=== PATIENT | female | born 2000 | race African-American/Black ===

== ENCOUNTER 2021-05-03 17:24 | Inpatient (IN) ==
[2021-05-03] MEDS ORDERED: SODIUM CHLORIDE 0.9% 1,000 ML IV STA (19:30)
[2021-05-03 19:39] LABS: Basophils % 0.3 % (0.0-0.8); Eosinophils # 0.1 10*3/uL (0.0-0.87); Eosinophils % 0.9 % (0.00-10.9); Hematocrit 38.7 VOL% (35.7-47.0); Hemoglobin 12.1 GM/DL (12.0-16.0); Immature Granulocytes % 5.5 %; Lymphocytes # 1.3 10*3/uL (1.4-4.0); Lymphocytes % 10.4 % (21.3-54.2); Mean Corpuscular HGB Conc 31.3 GM/DL (32-36); Mean Corpuscular Volume 94.9 FL (87-102); Mean Platelet Volume 10.7 FL (9.6-12.0); Monocytes % 11.4 % (1.7-12.7); Neutrophils % 71.5 % (38.7-73.9); Platelet Count 441 T/CUMM (130-400); Red Blood Count 4.08 MC/CUMM (3.8-5.5); Red Cell Distribution Width 12.5 % (9.3-17.3); White Blood Count 12.8 T/CUMM (4-12)
[2021-05-03 19:45] LABS: Glucose,Urine (UA) >=1000 mg/dL (Negative); Ketones,Urine 80 mg/dL (Negative); Nitrite,Urine Negative (Negative); Protein,Urine Negative (Negative); RBC,Urine 2 /HPF (0-4); Squamous Epithelial Cell,Urine Occasional /HPF (0-10); Urine Appearance Clear (Clear); Urine Color Yellow (Yellow); Urine pH 6.5 (4.5-8.0)
[2021-05-03 19:46] LABS: Bilirubin,Urine Negative (Negative); Blood, Urine Trace mg/dL (Negative); Urine Urobilinogen 0.2 eU/dL (<2.0)
[2021-05-03 19:59] LABS: Eosinophils 1 % (0-10); Hypochromia 1+; Lymphocytes 15 % (20-55); Segmented Neutrophils 73 % (50-85); Total Cells Counted 100
[2021-05-03 20:00] LABS: Albumin 2.5 G/DL (3.4-5.0); Bilirubin,Total 0.4 MG/DL (0.20-1.00); Calcium 9.5 MG/DL (8.5-10.1); Osmolality,Calculated 273.2 MOS/KG (273-304); Platelet Estimate Adequate; Polychromasia Few; Potassium 4.3 MMOL/L (3.5-5.1); Total Protein 7.8 G/DL (6.4-8.2)
[2021-05-03] MEDS ORDERED: INSULIN REGULAR 100 UNIT/ML IV STA (20:22)
[2021-05-03] MEDS ORDERED: VANCOMYCIN INJ 1,000 MG in SODIUM CHLORIDE 0.9% 250 ML IV STA ×2 (20:24→20:35)
[2021-05-03] MEDS ORDERED: ONDANSETRON 4 MG/2 ML VIAL IV STA (20:24)
[2021-05-03] MEDS ORDERED: MORPHINE 4 MG/1 ML VIAL IV STA (20:34)
[2021-05-03] MEDS ORDERED: MORPHINE 2 MG/1 ML SYRINGE ONE (20:45)
[2021-05-03] MEDS ORDERED: GLUCAGON 1 MG VIAL IM PRN (22:07)
[2021-05-03] MEDS ORDERED: DEXTROSE 10% 250 ML BAG IV PRN (22:07)
[2021-05-03 22:10] LABS: ABG Base Excess 0.4 MMOL/L (-2.5-2.5); ABG HCO3 24.2 MMOL/L (20-26); ABG Oxygen Saturation 97.2 % (95-100); ABG PCO2 36.3 MM HG (35-48); ABG PH 7.441 (7.35-7.45); ABG PO2 91.4 MM HG (80-95); ABG TCO2 25.3 MMOL/L (23-27)
[2021-05-04] MEDS: SODIUM CHLORIDE 0.9% 1,000 ML IV SCH ×3 (01:14→21:02)
[2021-05-04] MEDS: MORPHINE 4 MG/1 ML VIAL IV PRN ×2 (01:21→05:27)
[2021-05-04 01:38] LABS: Calcium 8.5 MG/DL (8.5-10.1); Osmolality,Calculated 278.8 MOS/KG (273-304); Potassium 4.5 MMOL/L (3.5-5.1)
[2021-05-04] MEDS: INSULIN LISPRO 100 UNIT/ML SUBCUT SCH ×5 (03:03→18:48)
[2021-05-04 04:29] LABS: ABG Base Excess -0.2 MMOL/L (-2.5-2.5); ABG HCO3 23.7 MMOL/L (20-26); ABG Oxygen Saturation 69.2 % (95-100); ABG PCO2 39.9 MM HG (35-48); ABG PH 7.396 (7.35-7.45); ABG TCO2 22.1 MMOL/L (23-27)
[2021-05-04 04:36] LABS: ABG PO2 39.1 MM HG (80-95)
[2021-05-04 05:10] LABS: Arterial Base Excess iSTAT -1 MMOL/L (-2.5-2.5); Arterial Bicarbonate iSTAT 23.4 MMOL/L (20-26); Arterial O2 Saturation iSTAT 96 % (95-100); Arterial PCO2 iSTAT 37 MM HG (35-48); Arterial PO2 iSTAT 80 MM HG (80-95); Arterial Total CO2 iSTAT 24 MMO/L (23-27); Arterial pH iSTAT 7.412 (7.35-7.45)
[2021-05-04] MEDS: ONDANSETRON 4 MG/2 ML VIAL IV PRN (05:27)
[2021-05-04 06:55] LABS: Basophils # 0.1 10*3/uL (0.0-0.2); Basophils % 0.5 % (0.0-0.8); Eosinophils # 0.2 10*3/uL (0.0-0.87); Eosinophils % 1.8 % (0.00-10.9); Hematocrit 33.1 VOL% (35.7-47.0); Hemoglobin 10.4 GM/DL (12.0-16.0); Immature Granulocytes Absolute 0.83 #; Lymphocytes # 2.3 10*3/uL (1.4-4.0); Lymphocytes % 19.6 % (21.3-54.2); Mean Corpuscular HGB Conc 31.4 GM/DL (32-36); Mean Corpuscular Volume 94.6 FL (87-102); Mean Platelet Volume 11.1 FL (9.6-12.0); Monocytes % 15.3 % (1.7-12.7); Neutrophils % 55.8 % (38.7-73.9); Platelet Count 390 T/CUMM (130-400); Red Cell Distribution Width 12.5 % (9.3-17.3); White Blood Count 11.9 T/CUMM (4-12)
[2021-05-04 07:17] LABS: Eosinophils 4 % (0-10); Hypochromia Slight; Lymphocytes 23 % (20-55); Microcytosis Slight; Platelet Estimate Adequate; Segmented Neutrophils 57 % (50-85); Total Cells Counted 100
[2021-05-04 07:21] LABS: Potassium 3.6 MMOL/L (3.5-5.1)
[2021-05-04] MEDS ORDERED: SUCCINYLCHOLINE 200 MG/10 ML VIAL ONE (07:55)
[2021-05-04] MEDS ORDERED: MIDAZOLAM 2 MG/2 ML VIAL ONE (07:55)
[2021-05-04] MEDS ORDERED: ROCURONIUM 50 MG/5 ML VIAL IV ONE (07:55)
[2021-05-04] MEDS ORDERED: fentaNYL 100 MCG/2 ML VIAL ONE (07:55)
[2021-05-04] MEDS ORDERED: SEVOFLURANE 1 UNIT/15 MINUTE INH ONE (07:55)
[2021-05-04] MEDS ORDERED: LIDOCAINE 2% 5 ML VIAL ONE (07:55)
[2021-05-04] MEDS ORDERED: propofoL 200 MG/20 ML VIAL IV ONE (07:55)
[2021-05-04] MEDS ORDERED: LIDOCAINE 1%/EPI INJ 20 ML VIAL ONE (08:00)
[2021-05-04] MEDS ORDERED: BUPIVACAINE MPF 0.25% 30 ML VIAL ONE (08:00)
[2021-05-04 08:59] LABS: Hepatitis B Core IgM Quant 0.17 Index; Hepatitis B Surface Ag Quant 0.11 Index; Hepatitis B Surface Ag Result Non-Reactive (NonReactive); Hepatitis C Virus Ab Quant 0.08 Index; Hepatitis C Virus Ab Result Non-Reactive (NonReactive)
[2021-05-04] MEDS ORDERED: VANCOMYCIN INJ 1,000 MG in SODIUM CHLORIDE 0.9% 250 ML IV SCH (09:00)
[2021-05-04] MEDS ORDERED: SUGAMMADEX 200 MG/2 ML VIAL IV ONE (09:05)
[2021-05-04] MEDS ORDERED: HYDROmorphone 1 MG/1 ML SYRINGE ONE (09:50)
[2021-05-04] MEDS ORDERED: HYDROmorphone 1 MG/1 ML SYRINGE IV PRN (09:52)
[2021-05-04] MEDS ORDERED: ONDANSETRON 4 MG/2 ML VIAL IV PRN (09:52)
[2021-05-04] MEDS: PANTOPRAZOLE 40 MG VIAL IV SCH (11:02)
[2021-05-04] MEDS: VANCOMYCIN INJ 1,000 MG in SODIUM CHLORIDE 0.9% 250 ML IV SCH ×2 (11:03→21:02)
[2021-05-04] MEDS ORDERED: GLUCAGON 1 MG VIAL IM PRN (11:04)
[2021-05-04] MEDS ORDERED: BISACODYL 5 MG TABLET PO PRN (11:04)
[2021-05-04] MEDS ORDERED: ACETAMINOPHEN 325 MG TABLET PO PRN (11:04)
[2021-05-04] MEDS ORDERED: DEXTROSE 10% 250 ML BAG IV PRN (11:43)
[2021-05-04 11:46] LABS: Calcium 8.3 MG/DL (8.5-10.1); Osmolality,Calculated 275.8 MOS/KG (273-304); Potassium 3.7 MMOL/L (3.5-5.1)
[2021-05-04 11:50] LABS: Albumin 1.9 G/DL (3.4-5.0); Bilirubin,Direct 0.12 MG/DL (0.0-0.20); Bilirubin,Indirect 0.5 MG/DL (0.0-1.0); Bilirubin,Total 0.6 MG/DL (0.20-1.00); Total Protein 6.1 G/DL (6.4-8.2)
[2021-05-04] MEDS: PIPERACILLIN/TAZOBACTAM 3,375 MG in SODIUM CHLORIDE 0.9% 100 ML IV SCH (13:26)
[2021-05-04] MEDS: HYDROmorphone 1 MG/1 ML SYRINGE IV PRN ×2 (13:30→17:15)
[2021-05-04] MEDS ORDERED: INSULIN GLARGINE 100 UNIT/ML SUBCUT SCH (21:00)
[2021-05-04] MEDS: KETOROLAC 15 MG/1 ML VIAL IV PRN (21:03)
[2021-05-05] MEDS: PIPERACILLIN/TAZOBACTAM 3,375 MG in SODIUM CHLORIDE 0.9% 100 ML IV SCH ×3 (00:09→17:30)
[2021-05-05] MEDS: INSULIN LISPRO 100 UNIT/ML SUBCUT SCH ×7 (00:09→20:29)
[2021-05-05] MEDS: HYDROmorphone 1 MG/1 ML SYRINGE IV PRN ×3 (04:16→22:29)
[2021-05-05] MEDS: ONDANSETRON 4 MG/2 ML VIAL IV PRN ×2 (04:16→22:29)
[2021-05-05 07:16] LABS: Basophils % 0.4 % (0.0-0.8); Eosinophils # 0.3 10*3/uL (0.0-0.87); Eosinophils % 2.4 % (0.00-10.9); Hematocrit 30.9 VOL% (35.7-47.0); Hemoglobin 9.6 GM/DL (12.0-16.0); Immature Granulocytes % 11.3 %; Immature Granulocytes Absolute 1.22 #; Lymphocytes % 18.7 % (21.3-54.2); Mean Corpuscular HGB Conc 31.1 GM/DL (32-36); Mean Corpuscular Volume 95.4 FL (87-102); Mean Platelet Volume 10.6 FL (9.6-12.0); Monocytes % 15.5 % (1.7-12.7); Neutrophils % 51.7 % (38.7-73.9); Platelet Count 400 T/CUMM (130-400); Red Blood Count 3.24 MC/CUMM (3.8-5.5); Red Cell Distribution Width 12.5 % (9.3-17.3); White Blood Count 10.8 T/CUMM (4-12)
[2021-05-05 07:42] LABS: Alanine Aminotransferase 110 U/L (13-56); Albumin 1.8 G/DL (3.4-5.0); Alkaline Phosphatase 210 U/L (45-117); Aspartate Amino Transferase 398 U/L (0-37); Bilirubin,Total < 0.39 MG/DL (0.20-1.00); Blood Urea Nitrogen 3 MG/DL (7-18); Calcium 8.5 MG/DL (8.5-10.1); Carbon Dioxide 27 MMOL/L (21-32); Estimated Glom Filtration Rate 140 ML/MIN; Glucose 182 MG/DL (74-106); Potassium 3.6 MMOL/L (3.5-5.1); Sodium 136 MMOL/L (136-145); Total Protein 5.9 G/DL (6.4-8.2)
[2021-05-05 08:11] LABS: Band Neutrophils 3 % (0-10); Eosinophils 3 % (0-10); Hypochromia Slight; Lymphocytes 18 % (20-55); Myelocytes 1 %; Promyelocytes 2 %; Segmented Neutrophils 59 % (50-85); Total Cells Counted 100
[2021-05-05 08:12] LABS: Microcytosis 1+
[2021-05-05] MEDS ORDERED: POTASSIUM CHLORIDE 20 MEQ TABLET PO ONE (09:00)
[2021-05-05] MEDS ORDERED: MAGNESIUM SULF RIDER 2 GM/50 ML PREMIX IV ONE (09:00)
[2021-05-05] MEDS: KETOROLAC 15 MG/1 ML VIAL IV PRN ×2 (09:06→20:30)
[2021-05-05] MEDS: PANTOPRAZOLE 40 MG VIAL IV SCH (09:10)
[2021-05-05] MEDS: VANCOMYCIN INJ 1,000 MG in SODIUM CHLORIDE 0.9% 250 ML IV SCH ×2 (09:55→20:31)
[2021-05-05] MEDS: SODIUM CHLORIDE 0.9% 1,000 ML IV SCH ×3 (13:30→22:28)
[2021-05-05] MEDS: INSULIN GLARGINE 100 UNIT/ML SUBCUT SCH (20:29)
[2021-05-06] MEDS: INSULIN LISPRO 100 UNIT/ML SUBCUT SCH ×7 (00:29→23:54)
[2021-05-06] MEDS: PIPERACILLIN/TAZOBACTAM 3,375 MG in SODIUM CHLORIDE 0.9% 100 ML IV SCH ×2 (00:29→09:23)
[2021-05-06] MEDS: VANCOMYCIN INJ 1,000 MG in SODIUM CHLORIDE 0.9% 250 ML IV SCH ×3 (04:19→21:11)
[2021-05-06 09:03] LABS: Alanine Aminotransferase 113 U/L (13-56); Albumin 1.9 G/DL (3.4-5.0); Alkaline Phosphatase 192 U/L (45-117); Aspartate Amino Transferase 323 U/L (0-37); Bilirubin,Total < 0.39 MG/DL (0.20-1.00); Blood Urea Nitrogen 3 MG/DL (7-18); Calcium 8.6 MG/DL (8.5-10.1); Carbon Dioxide 28 MMOL/L (21-32); Estimated Glom Filtration Rate 86 ML/MIN; Glucose 239 MG/DL (74-106); Osmolality,Calculated 285.3 MOS/KG (273-304); Potassium 3.8 MMOL/L (3.5-5.1); Sodium 141 MMOL/L (136-145); Total Protein 6.2 G/DL (6.4-8.2)
[2021-05-06] MEDS: PANTOPRAZOLE 40 MG VIAL IV SCH (09:23)
[2021-05-06] MEDS: SODIUM CHLORIDE 0.9% 1,000 ML IV SCH ×2 (10:55→15:30)
[2021-05-06] MEDS: HYDROmorphone 1 MG/1 ML SYRINGE IV PRN (14:49)
[2021-05-06] MEDS: INSULIN GLARGINE 100 UNIT/ML SUBCUT SCH (21:08)
[2021-05-06] MEDS: KETOROLAC 15 MG/1 ML VIAL IV PRN (21:13)
[2021-05-07] MEDS: VANCOMYCIN INJ 1,000 MG in SODIUM CHLORIDE 0.9% 250 ML IV SCH ×2 (04:07→12:15)
[2021-05-07] MEDS: SODIUM CHLORIDE 0.9% 1,000 ML IV SCH ×2 (04:08→15:16)
[2021-05-07] MEDS: INSULIN LISPRO 100 UNIT/ML SUBCUT SCH ×6 (04:08→23:36)
[2021-05-07 05:24] LABS: Basophils % 0.3 % (0.0-0.8); Eosinophils # 0.4 10*3/uL (0.0-0.87); Hematocrit 31.8 VOL% (35.7-47.0); Hemoglobin 9.9 GM/DL (12.0-16.0); Immature Granulocytes % 13.1 %; Immature Granulocytes Absolute 1.54 #; Lymphocytes # 2.4 10*3/uL (1.4-4.0); Lymphocytes % 20.3 % (21.3-54.2); Mean Corpuscular HGB Conc 31.1 GM/DL (32-36); Mean Corpuscular Volume 93.8 FL (87-102); Mean Platelet Volume 9.7 FL (9.6-12.0); Monocytes % 11.6 % (1.7-12.7); Neutrophils % 51.7 % (38.7-73.9); Platelet Count 426 T/CUMM (130-400); Red Blood Count 3.39 MC/CUMM (3.8-5.5); Red Cell Distribution Width 12.7 % (9.3-17.3); White Blood Count 11.8 T/CUMM (4-12)
[2021-05-07 05:48] LABS: Albumin 1.9 G/DL (3.4-5.0); Bilirubin,Total 0.4 MG/DL (0.20-1.00); Calcium 8.6 MG/DL (8.5-10.1); Osmolality,Calculated 287.6 MOS/KG (273-304); Potassium 3.4 MMOL/L (3.5-5.1)
[2021-05-07 05:53] LABS: Anisocytosis Slight; Band Neutrophils 7 % (0-10); Eosinophils 4 % (0-10); Lymphocytes 21 % (20-55); Myelocytes 3 %; Platelet Estimate Normal; Promyelocytes 2 %; Segmented Neutrophils 54 % (50-85); Total Cells Counted 100
[2021-05-07 05:54] LABS: Macrocytosis Slight; Smudge Cells Few
[2021-05-07] MEDS ORDERED: SEVOFLURANE 1 UNIT/15 MINUTE INH ONE (08:06)
[2021-05-07] MEDS ORDERED: propofoL 200 MG/20 ML VIAL IV ONE (08:06)
[2021-05-07] MEDS ORDERED: LIDOCAINE 2% 5 ML VIAL ONE (08:06)
[2021-05-07] MEDS ORDERED: ONDANSETRON 4 MG/2 ML VIAL ONE (08:06)
[2021-05-07] MEDS ORDERED: MIDAZOLAM 2 MG/2 ML VIAL ONE (08:06)
[2021-05-07] MEDS ORDERED: fentaNYL 100 MCG/2 ML VIAL ONE ×2 (08:07→09:07)
[2021-05-07] MEDS ORDERED: LIDOCAINE 1%/EPI INJ 20 ML VIAL ONE (08:22)
[2021-05-07] MEDS ORDERED: BUPIVACAINE MPF 0.25% 30 ML VIAL ONE (08:22)
[2021-05-07] MEDS ORDERED: LACTATED RINGERS 1,000 ML IV SCH (08:30)
[2021-05-07] MEDS ORDERED: ACETAMINOPHEN INJ 1,000 MG/100 ML VIAL IV ONE (09:07)
[2021-05-07] MEDS: SODIUM CHLORIDE 0.45% 1,000 ML IV SCH (12:15)
[2021-05-07] MEDS: PANTOPRAZOLE 40 MG VIAL IV SCH (12:16)
[2021-05-07] MEDS: POTASSIUM CHLORIDE 20 MEQ TABLET PO ONE ×2 (12:16→14:30)
[2021-05-07] MEDS ORDERED: POTASSIUM BICARB EFFERVESCENT 20 MEQ TAB.EFF PO ONE (14:28)
[2021-05-07] MEDS: HYDROmorphone 1 MG/1 ML SYRINGE IV PRN ×2 (18:05→22:24)
[2021-05-07] MEDS: INSULIN GLARGINE 100 UNIT/ML SUBCUT SCH (20:28)
[2021-05-08] MEDS: SODIUM CHLORIDE 0.45% 1,000 ML IV SCH ×4 (01:49→18:27)
[2021-05-08] MEDS: INSULIN LISPRO 100 UNIT/ML SUBCUT SCH ×6 (03:58→23:49)
[2021-05-08 05:57] LABS: Basophils % 0.2 % (0.0-0.8); Eosinophils # 0.3 10*3/uL (0.0-0.87); Eosinophils % 2.5 % (0.00-10.9); Hematocrit 32.9 VOL% (35.7-47.0); Immature Granulocytes % 7.5 %; Immature Granulocytes Absolute 0.98 #; Lymphocytes # 2.5 10*3/uL (1.4-4.0); Lymphocytes % 19.2 % (21.3-54.2); Mean Corpuscular HGB Conc 30.4 GM/DL (32-36); Mean Corpuscular Volume 96.5 FL (87-102); Mean Platelet Volume 9.9 FL (9.6-12.0); Monocytes % 12.1 % (1.7-12.7); Neutrophils % 58.5 % (38.7-73.9); Platelet Count 431 T/CUMM (130-400); Red Blood Count 3.41 MC/CUMM (3.8-5.5); Red Cell Distribution Width 13.1 % (9.3-17.3); White Blood Count 13.1 T/CUMM (4-12)
[2021-05-08 06:17] LABS: Alanine Aminotransferase 74 U/L (13-56); Alkaline Phosphatase 174 U/L (45-117); Aspartate Amino Transferase 93 U/L (0-37); Bilirubin,Total < 0.39 MG/DL (0.20-1.00); Blood Urea Nitrogen 6 MG/DL (7-18); Calcium 9.2 MG/DL (8.5-10.1); Carbon Dioxide 32 MMOL/L (21-32); Estimated Glom Filtration Rate 49 ML/MIN; Glucose 95 MG/DL (74-106); Potassium 3.7 MMOL/L (3.5-5.1); Sodium 143 MMOL/L (136-145); Total Protein 6.4 G/DL (6.4-8.2)
[2021-05-08 06:38] LABS: Eosinophils 2 % (0-10); Hypochromia 1+; Lymphocytes 20 % (20-55); Microcytosis 1+; Platelet Estimate Increased; Segmented Neutrophils 68 % (50-85); Total Cells Counted 100
[2021-05-08] MEDS: PANTOPRAZOLE 40 MG VIAL IV SCH (08:47)
[2021-05-08] MEDS: DOXYCYCLINE HYCLATE INJ 100 MG in SODIUM CHLORIDE 0.9% 100 ML IV SCH ×2 (13:31→23:49)
[2021-05-08] MEDS: SODIUM HYPOCHLORITE 0.25% IRRIG 473 ML BOTTLE TOP SCH ×2 (18:27→21:44)
[2021-05-08] MEDS: INSULIN GLARGINE 100 UNIT/ML SUBCUT SCH (21:10)
[2021-05-09] MEDS: INSULIN LISPRO 100 UNIT/ML SUBCUT SCH ×4 (04:16→15:51)
[2021-05-09 05:27] LABS: Basophils # 0.1 10*3/uL (0.0-0.2); Basophils % 0.9 % (0.0-0.8); Eosinophils # 0.2 10*3/uL (0.0-0.87); Eosinophils % 1.2 % (0.00-10.9); Hemoglobin 9.9 GM/DL (12.0-16.0); Immature Granulocytes % 6.9 %; Immature Granulocytes Absolute 1.08 #; Lymphocytes % 12.7 % (21.3-54.2); Mean Corpuscular HGB Conc 30.9 GM/DL (32-36); Mean Corpuscular Volume 96.4 FL (87-102); Mean Platelet Volume 10.2 FL (9.6-12.0); Monocytes % 10.2 % (1.7-12.7); Neutrophils % 68.1 % (38.7-73.9); Platelet Count 432 T/CUMM (130-400); Red Blood Count 3.32 MC/CUMM (3.8-5.5); Red Cell Distribution Width 13.1 % (9.3-17.3); White Blood Count 15.5 T/CUMM (4-12)
[2021-05-09 05:47] LABS: Alanine Aminotransferase 61 U/L (13-56); Albumin 2.1 G/DL (3.4-5.0); Alkaline Phosphatase 168 U/L (45-117); Aspartate Amino Transferase 71 U/L (0-37); Bilirubin,Total < 0.39 MG/DL (0.20-1.00); Blood Urea Nitrogen 6 MG/DL (7-18); Calcium 8.4 MG/DL (8.5-10.1); Carbon Dioxide 27 MMOL/L (21-32); Estimated Glom Filtration Rate 53 ML/MIN; Glucose 102 MG/DL (74-106); Osmolality,Calculated 276.4 MOS/KG (273-304); Potassium 4.2 MMOL/L (3.5-5.1); Sodium 140 MMOL/L (136-145); Total Protein 6.8 G/DL (6.4-8.2)
[2021-05-09 06:45] LABS: Band Neutrophils 2 % (0-10); Eosinophils 1 % (0-10); Lymphocytes 13 % (20-55); Nucleated Red Blood Cells 1 (0-5); Segmented Neutrophils 78 % (50-85); Total Cells Counted 100
[2021-05-09 06:46] LABS: Hypochromia 1+; Microcytosis 1+; Platelet Estimate Adequate
[2021-05-09] MEDS: SODIUM HYPOCHLORITE 0.25% IRRIG 473 ML BOTTLE TOP SCH (08:33)
[2021-05-09] MEDS: PANTOPRAZOLE 40 MG VIAL IV SCH (08:39)
[2021-05-09] MEDS: SODIUM CHLORIDE 0.45% 1,000 ML IV SCH ×2 (10:29→14:58)
[2021-05-09] MEDS: DOXYCYCLINE HYCLATE INJ 100 MG in SODIUM CHLORIDE 0.9% 100 ML IV SCH (12:59)
[2021-05-09 15:27] VITALS: BP 119/76
[2021-05-09] MEDS ORDERED: INSULIN GLARGINE 100 UNIT/ML SUBCUT SCH (21:00)
[2021-05-10] MEDS ORDERED: PANTOPRAZOLE 40 MG TABLET PO SCH (06:30)
== END 2021-05-09 16:08 | disposition home health service (06) | DRG 623 ==
LOC: N.ED 17:24 → N.EDINP 05-04 01:03 → N.5E 05-04 03:21
PROVIDERS: ADMIT Surgery; ATTEND Surgery

== ENCOUNTER 2021-10-27 13:57 | Inpatient (IN) ==
[2021-10-27] MEDS ORDERED: HYDROmorphone 1 MG/1 ML SYRINGE IV STA (14:28)
[2021-10-27] MEDS ORDERED: SODIUM CHLORIDE 0.9% 1,000 ML IV STA ×2 (14:28→17:11)
[2021-10-27] MEDS ORDERED: VANCOMYCIN INJ 1,250 MG in SODIUM CHLORIDE 0.9% 250 ML IV STA (14:29)
[2021-10-27] MEDS ORDERED: ONDANSETRON 4 MG/2 ML VIAL IV ONE (14:29)
[2021-10-27 15:14] LABS: Calcium 10.7 MG/DL (8.5-10.1); Osmolality,Calculated 272.8 MOS/KG (273-304)
[2021-10-27 16:26] LABS: Basophils # 0.1 10*3/uL (0.0-0.2); Basophils % 0.5 % (0.0-0.8); Eosinophils # 0.4 10*3/uL (0.0-0.87); Hematocrit 39.9 VOL% (35.7-47.0); Hemoglobin 12.8 GM/DL (12.0-16.0); Immature Granulocytes % 1.7 %; Immature Granulocytes Absolute 0.29 #; Lymphocytes # 2.1 10*3/uL (1.4-4.0); Mean Corpuscular HGB Conc 32.1 GM/DL (32-36); Mean Corpuscular Volume 92.1 FL (87-102); Mean Platelet Volume 11.6 FL (9.6-12.0); Monocytes # 1.7 10*3/uL (0.11-0.8); Monocytes % 9.8 % (1.7-12.7); Platelet Count 436 T/CUMM (130-400); Red Blood Count 4.33 MC/CUMM (3.8-5.5); White Blood Count 17.4 T/CUMM (4-12)
[2021-10-27] MEDS ORDERED: LIDOCAINE 1%/EPI INJ 20 ML VIAL ONE (16:43)
[2021-10-27] MEDS ORDERED: GLUCAGON 1 MG VIAL IM PRN (17:11)
[2021-10-27] MEDS ORDERED: DEXTROSE 10% 250 ML BAG IV PRN (17:11)
[2021-10-27] MEDS ORDERED: ONDANSETRON 4 MG/2 ML VIAL IV PRN (17:11)
[2021-10-27] MEDS ORDERED: ACETAMINOPHEN 325 MG TABLET PO PRN (17:11)
[2021-10-27] MEDS: MORPHINE 2 MG/1 ML SYRINGE IV PRN (17:34)
[2021-10-27] MEDS: ENOXAPARIN 40 MG/0.4 ML SYRINGE SUBCUT SCH (17:41)
[2021-10-27] MEDS: PIPERACILLIN/TAZOBACTAM 3,375 MG in SODIUM CHLORIDE 0.9% 100 ML IV SCH (18:16)
[2021-10-27] MEDS: INSULIN LISPRO 100 UNIT/ML SUBCUT SCH (20:34)
[2021-10-27] MEDS: DOCUSATE SODIUM 100 MG CAPSULE PO SCH (20:35)
[2021-10-27] MEDS: LACTATED RINGERS 1,000 ML IV SCH (20:37)
[2021-10-27] MEDS ORDERED: INSULIN GLARGINE 100 UNIT/ML SUBCUT SCH (21:00)
[2021-10-28] MEDS: PIPERACILLIN/TAZOBACTAM 3,375 MG in SODIUM CHLORIDE 0.9% 100 ML IV SCH ×3 (00:34→16:38)
[2021-10-28] MEDS: MORPHINE 2 MG/1 ML SYRINGE IV PRN ×3 (00:35→21:00)
[2021-10-28] MEDS: VANCOMYCIN INJ 1,000 MG in SODIUM CHLORIDE 0.9% 250 ML IV SCH ×2 (05:50→20:41)
[2021-10-28 05:55] LABS: Basophils # 0.1 10*3/uL (0.0-0.2); Basophils % 0.6 % (0.0-0.8); Eosinophils # 0.3 10*3/uL (0.0-0.87); Eosinophils % 2.3 % (0.00-10.9); Hematocrit 35.2 VOL% (35.7-47.0); Hemoglobin 11.1 GM/DL (12.0-16.0); Immature Granulocytes % 2.5 %; Immature Granulocytes Absolute 0.35 #; Lymphocytes # 2.3 10*3/uL (1.4-4.0); Lymphocytes % 16.5 % (21.3-54.2); Mean Corpuscular HGB Conc 31.5 GM/DL (32-36); Mean Corpuscular Volume 94.4 FL (87-102); Mean Platelet Volume 11.2 FL (9.6-12.0); Monocytes # 1.4 10*3/uL (0.11-0.8); Monocytes % 9.7 % (1.7-12.7); Neutrophils % 68.4 % (38.7-73.9); Platelet Count 355 T/CUMM (130-400); Red Blood Count 3.73 MC/CUMM (3.8-5.5); White Blood Count 14.1 T/CUMM (4-12)
[2021-10-28 06:55] LABS: Calcium 9.3 MG/DL (8.5-10.1); Osmolality,Calculated 277.8 MOS/KG (273-304); Potassium 4.3 MMOL/L (3.5-5.1)
[2021-10-28] MEDS: INSULIN LISPRO 100 UNIT/ML SUBCUT SCH ×4 (08:01→20:40)
[2021-10-28] MEDS: DOCUSATE SODIUM 100 MG CAPSULE PO SCH ×2 (08:01→20:40)
[2021-10-28] MEDS: LACTATED RINGERS 1,000 ML IV SCH ×3 (08:02→18:00)
[2021-10-28] MEDS ORDERED: PANTOPRAZOLE 40 MG TABLET PO SCH (09:00)
[2021-10-28] MEDS ORDERED: INSULIN GLARGINE 100 UNIT/ML SUBCUT ONE (09:28)
[2021-10-28] MEDS ORDERED: methylPREDNISolone SOD SUC 125 MG/2 ML VIAL IM ONE (16:50)
[2021-10-28] MEDS ORDERED: methylPREDNISolone SOD SUC 125 MG/2 ML VIAL IV ONE (16:50)
[2021-10-28] MEDS: ENOXAPARIN 40 MG/0.4 ML SYRINGE SUBCUT SCH (18:21)
[2021-10-28] MEDS: SODIUM CHLORIDE 0.9% 1,000 ML IV SCH (18:25)
[2021-10-28] MEDS ORDERED: INSULIN GLARGINE 100 UNIT/ML SUBCUT SCH (21:00)
[2021-10-29] MEDS: PIPERACILLIN/TAZOBACTAM 3,375 MG in SODIUM CHLORIDE 0.9% 100 ML IV SCH ×3 (00:56→18:00)
[2021-10-29] MEDS: SODIUM CHLORIDE 0.9% 1,000 ML IV SCH ×2 (03:25→15:40)
[2021-10-29 06:26] LABS: Basophils # 0.1 10*3/uL (0.0-0.2); Basophils % 0.4 % (0.0-0.8); Eosinophils % 0.1 % (0.00-10.9); Hematocrit 34.2 VOL% (35.7-47.0); Immature Granulocytes % 3.6 %; Immature Granulocytes Absolute 0.59 #; Lymphocytes # 1.3 10*3/uL (1.4-4.0); Lymphocytes % 8.1 % (21.3-54.2); Mean Corpuscular HGB Conc 32.2 GM/DL (32-36); Mean Corpuscular Volume 91.9 FL (87-102); Mean Platelet Volume 10.8 FL (9.6-12.0); Monocytes # 0.9 10*3/uL (0.11-0.8); Monocytes % 5.8 % (1.7-12.7); Platelet Count 377 T/CUMM (130-400); Red Blood Count 3.72 MC/CUMM (3.8-5.5); Red Cell Distribution Width 11.9 % (9.3-17.3); White Blood Count 16.2 T/CUMM (4-12)
[2021-10-29 06:42] LABS: Osmolality,Calculated 282.1 MOS/KG (273-304); Potassium 4.2 MMOL/L (3.5-5.1)
[2021-10-29 06:51] LABS: Band Neutrophils 2 % (0-10); Eosinophils 1 % (0-10); Hypochromia Slight; Lymphocytes 6 % (20-55); Microcytosis Slight; Platelet Estimate Normal; Total Cells Counted 100
[2021-10-29] MEDS: INSULIN LISPRO 100 UNIT/ML SUBCUT SCH ×5 (08:00→20:18)
[2021-10-29] MEDS: DOCUSATE SODIUM 100 MG CAPSULE PO SCH ×2 (08:25→20:18)
[2021-10-29] MEDS: VANCOMYCIN INJ 1,000 MG in SODIUM CHLORIDE 0.9% 250 ML IV SCH (08:30)
[2021-10-29] MEDS: ENOXAPARIN 40 MG/0.4 ML SYRINGE SUBCUT SCH (18:00)
[2021-10-29] MEDS: INSULIN GLARGINE 100 UNIT/ML SUBCUT SCH (20:18)
[2021-10-29] MEDS: MORPHINE 2 MG/1 ML SYRINGE IV PRN (20:18)
[2021-10-30] MEDS: SODIUM CHLORIDE 0.9% 1,000 ML IV SCH ×3 (01:07→20:32)
[2021-10-30] MEDS: PIPERACILLIN/TAZOBACTAM 3,375 MG in SODIUM CHLORIDE 0.9% 100 ML IV SCH ×3 (01:08→18:37)
[2021-10-30 05:35] LABS: Basophils # 0.1 10*3/uL (0.0-0.2); Basophils % 0.5 % (0.0-0.8); Eosinophils # 0.2 10*3/uL (0.0-0.87); Eosinophils % 2.2 % (0.00-10.9); Hematocrit 31.9 VOL% (35.7-47.0); Hemoglobin 10.1 GM/DL (12.0-16.0); Immature Granulocytes % 2.8 %; Immature Granulocytes Absolute 0.28 #; Lymphocytes # 2.6 10*3/uL (1.4-4.0); Lymphocytes % 25.9 % (21.3-54.2); Mean Corpuscular HGB Conc 31.7 GM/DL (32-36); Mean Corpuscular Volume 93.8 FL (87-102); Mean Platelet Volume 10.1 FL (9.6-12.0); Monocytes # 0.8 10*3/uL (0.11-0.8); Monocytes % 7.8 % (1.7-12.7); Neutrophils % 60.8 % (38.7-73.9); Platelet Count 324 T/CUMM (130-400); Red Cell Distribution Width 12.1 % (9.3-17.3); White Blood Count 9.9 T/CUMM (4-12)
[2021-10-30 05:51] LABS: Calcium 8.3 MG/DL (8.5-10.1); Osmolality,Calculated 282.1 MOS/KG (273-304); Potassium 3.1 MMOL/L (3.5-5.1)
[2021-10-30] MEDS: INSULIN LISPRO 100 UNIT/ML SUBCUT SCH ×4 (07:47→21:13)
[2021-10-30] MEDS: DOCUSATE SODIUM 100 MG CAPSULE PO SCH ×2 (08:35→21:14)
[2021-10-30] MEDS: POTASSIUM CHLORIDE RIDER 10 MEQ/100 ML PREMIX IV PRN ×2 (10:35→13:18)
[2021-10-30] MEDS: ENOXAPARIN 40 MG/0.4 ML SYRINGE SUBCUT SCH (18:38)
[2021-10-30] MEDS ORDERED: LIDOCAINE 2%/EPI 20 ML VIAL ONE (19:06)
[2021-10-30] MEDS ORDERED: BUPIVACAINE MPF 0.25% 10 ML VIAL ONE (19:06)
[2021-10-30] MEDS ORDERED: LIDOCAINE 2% 5 ML VIAL ONE (20:18)
[2021-10-30] MEDS ORDERED: ONDANSETRON 4 MG/2 ML VIAL ONE (20:18)
[2021-10-30] MEDS ORDERED: SEVOFLURANE 1 UNIT/15 MINUTE INH ONE (20:18)
[2021-10-30] MEDS ORDERED: propofoL 200 MG/20 ML VIAL IV ONE (20:18)
[2021-10-30] MEDS ORDERED: ONDANSETRON 4 MG/2 ML VIAL IV PRN (20:23)
[2021-10-30] MEDS: HYDROmorphone 1 MG/1 ML SYRINGE IV PRN ×3 (20:25→20:45)
[2021-10-30 20:55] VITALS: BP 160/102
[2021-10-30] MEDS: MORPHINE 2 MG/1 ML SYRINGE IV PRN (22:35)
[2021-10-30] MEDS: INSULIN GLARGINE 100 UNIT/ML SUBCUT SCH (22:37)
[2021-10-31] MEDS: PIPERACILLIN/TAZOBACTAM 3,375 MG in SODIUM CHLORIDE 0.9% 100 ML IV SCH ×3 (01:08→18:04)
[2021-10-31] MEDS: MORPHINE 2 MG/1 ML SYRINGE IV PRN ×4 (03:15→22:36)
[2021-10-31 06:25] LABS: Basophils # 0.1 10*3/uL (0.0-0.2); Basophils % 1.2 % (0.0-0.8); Eosinophils # 0.3 10*3/uL (0.0-0.87); Eosinophils % 3.2 % (0.00-10.9); Hematocrit 34.9 VOL% (35.7-47.0); Hemoglobin 10.9 GM/DL (12.0-16.0); Immature Granulocytes % 4.4 %; Immature Granulocytes Absolute 0.37 #; Lymphocytes # 1.8 10*3/uL (1.4-4.0); Lymphocytes % 21.2 % (21.3-54.2); Mean Corpuscular HGB Conc 31.2 GM/DL (32-36); Mean Corpuscular Volume 94.8 FL (87-102); Mean Platelet Volume 10.4 FL (9.6-12.0); Monocytes # 0.8 10*3/uL (0.11-0.8); Platelet Count 339 T/CUMM (130-400); Red Blood Count 3.68 MC/CUMM (3.8-5.5); Red Cell Distribution Width 12.2 % (9.3-17.3); White Blood Count 8.5 T/CUMM (4-12)
[2021-10-31] MEDS: SODIUM CHLORIDE 0.9% 1,000 ML IV SCH ×4 (06:37→21:02)
[2021-10-31 06:54] LABS: Calcium 8.7 MG/DL (8.5-10.1); Osmolality,Calculated 282.5 MOS/KG (273-304); Potassium 3.6 MMOL/L (3.5-5.1)
[2021-10-31] MEDS: INSULIN LISPRO 100 UNIT/ML SUBCUT SCH ×4 (08:05→20:52)
[2021-10-31] MEDS: DOCUSATE SODIUM 100 MG CAPSULE PO SCH ×2 (09:56→20:52)
[2021-10-31] MEDS: ENOXAPARIN 40 MG/0.4 ML SYRINGE SUBCUT SCH (18:05)
[2021-10-31] MEDS: INSULIN GLARGINE 100 UNIT/ML SUBCUT SCH (20:52)
[2021-11-01] MEDS: PIPERACILLIN/TAZOBACTAM 3,375 MG in SODIUM CHLORIDE 0.9% 100 ML IV SCH ×3 (00:31→17:00)
[2021-11-01] MEDS: SODIUM CHLORIDE 0.9% 1,000 ML IV SCH ×2 (02:59→15:24)
[2021-11-01 05:31] LABS: Basophils # 0.1 10*3/uL (0.0-0.2); Basophils % 1.3 % (0.0-0.8); Eosinophils # 0.5 10*3/uL (0.0-0.87); Hematocrit 34.8 VOL% (35.7-47.0); Hemoglobin 10.8 GM/DL (12.0-16.0); Immature Granulocytes % 6.8 %; Immature Granulocytes Absolute 0.46 #; Lymphocytes # 2.2 10*3/uL (1.4-4.0); Lymphocytes % 32.5 % (21.3-54.2); Mean Corpuscular Volume 94.6 FL (87-102); Mean Platelet Volume 10.3 FL (9.6-12.0); Monocytes # 0.7 10*3/uL (0.11-0.8); Monocytes % 9.5 % (1.7-12.7); Neutrophils % 42.9 % (38.7-73.9); Platelet Count 336 T/CUMM (130-400); Red Blood Count 3.68 MC/CUMM (3.8-5.5); Red Cell Distribution Width 12.1 % (9.3-17.3); White Blood Count 6.8 T/CUMM (4-12)
[2021-11-01 05:46] LABS: Calcium 8.6 MG/DL (8.5-10.1); Osmolality,Calculated 282.5 MOS/KG (273-304); Potassium 3.6 MMOL/L (3.5-5.1)
[2021-11-01 05:55] LABS: Band Neutrophils 1 % (0-10); Eosinophils 4 % (0-10); Hypochromia Slight; Lymphocytes 36 % (20-55); Platelet Estimate Adequate; Total Cells Counted 100
[2021-11-01] MEDS ORDERED: DEXTROSE 50% 25 GM/50 ML VIAL IV PRN (07:45)
[2021-11-01] MEDS ORDERED: GLUCAGON 1 MG VIAL IM PRN (07:45)
[2021-11-01] MEDS: DOCUSATE SODIUM 100 MG CAPSULE PO SCH ×2 (10:20→21:08)
[2021-11-01] MEDS: INSULIN LISPRO 100 UNIT/ML SUBCUT SCH ×4 (12:00→21:08)
[2021-11-01] MEDS: ENOXAPARIN 40 MG/0.4 ML SYRINGE SUBCUT SCH (17:00)
[2021-11-01] MEDS: INSULIN GLARGINE 100 UNIT/ML SUBCUT SCH (21:09)
[2021-11-02] MEDS: INSULIN LISPRO 100 UNIT/ML SUBCUT SCH ×4 (09:06→20:51)
[2021-11-02] MEDS: DOCUSATE SODIUM 100 MG CAPSULE PO SCH ×2 (09:19→23:47)
[2021-11-02] MEDS: ENOXAPARIN 40 MG/0.4 ML SYRINGE SUBCUT SCH (17:44)
[2021-11-02] MEDS: INSULIN GLARGINE 100 UNIT/ML SUBCUT SCH (20:50)
[2021-11-03 04:02] LABS: Basophils # 0.1 10*3/uL (0.0-0.2); Basophils % 0.5 % (0.0-0.8); Eosinophils # 0.5 10*3/uL (0.0-0.87); Eosinophils % 4.2 % (0.00-10.9); Hematocrit 37.2 VOL% (35.7-47.0); Hemoglobin 11.8 GM/DL (12.0-16.0); Immature Granulocytes % 8.2 %; Lymphocytes % 27.6 % (21.3-54.2); Mean Corpuscular HGB Conc 31.7 GM/DL (32-36); Mean Platelet Volume 10.7 FL (9.6-12.0); Monocytes # 0.9 10*3/uL (0.11-0.8); Monocytes % 8.3 % (1.7-12.7); Neutrophils % 51.2 % (38.7-73.9); Platelet Count 431 T/CUMM (130-400); Red Cell Distribution Width 12.2 % (9.3-17.3)
[2021-11-03 04:16] LABS: Calcium 9.4 MG/DL (8.5-10.1); Osmolality,Calculated 283.4 MOS/KG (273-304); Potassium 3.6 MMOL/L (3.5-5.1)
[2021-11-03 04:30] LABS: Eosinophils 4 % (0-10); Lymphocytes 31 % (20-55); Platelet Estimate Adequate; Total Cells Counted 100
[2021-11-03] MEDS: INSULIN LISPRO 100 UNIT/ML SUBCUT SCH (07:59)
[2021-11-03] MEDS: DOCUSATE SODIUM 100 MG CAPSULE PO SCH (07:59)
[2021-11-03] MEDS ORDERED: CHOLECALCIFEROL 1,000 UNIT TABLET PO SCH (09:00)
[2021-11-03] MEDS ORDERED: ERGOCALCIFEROL 50,000 UNIT CAPSULE PO ONE (10:13)
[2021-11-03] MEDS ORDERED: DOXYCYCLINE HYCLATE 100 MG CAPSULE PO SCH (21:00)
== END 2021-11-03 14:15 | disposition home or self-care (01) | DRG 638 ==
LOC: N.ED 13:57 → SUATTDRO 17:11 → N.EDINP 17:11 → N.5E 18:18 → N.ICU 10-28 16:20
PROVIDERS: ADMIT Internal Medicine; ATTEND Hospitalist